=== PATIENT | female | born 1945 ===

== ENCOUNTER 2019-05-05 09:12 | Outpatient (CLI) | payer SELFPAY | END 2019-05-05 09:13 | disposition EMS.NT | LOC: EMS 09:12 | PROVIDERS: ATTEND Surgery | DX: R53.1 Weakness (principal) ==

== ENCOUNTER 2019-06-08 09:36 | Outpatient (CLI) | payer SELFPAY | END 2019-06-08 09:37 | disposition EMS.NT | LOC: EMS 09:36 | PROVIDERS: ATTEND Surgery | DX: Z03.89 Encounter for observation for other suspected diseases and conditions ruled out (principal) ==